=== PATIENT | male | born 1965 | race Caucasian/White ===

== ENCOUNTER 2017-09-02 11:45 | Inpatient (IN) ==
--- NOTE | 2017-09-02 12:04 | Emergency Department Note ---
Disposition Clinical Impression: GI bleed Qualifiers: GI bleed type/associated pathology: unspecified gastrointestinal hemorrhage type Qualified Code(s): K92.2 - Gastrointestinal hemorrhage, unspecified Disposition: Admitted As Inpatient Condition: Good Referrals: Blu Álvarez MD [Primary Care Provider] - Forms: ED Satisfaction Letter Time of Disposition: 12:44 GI Bleed HPI - General Chief complaint: ED GI Bleed Stated complaint: Weakness/Tarry stools Time Seen by Provider: 09/02/17 11:50 Source: patient Limitations: no limitations Nursing Notes Reviewed: Yes Vital Signs Reviewed: Yes - History of Present Illness HPI Narrative: 51-year-old who comes in stating he has dark tarry stools. Patient is on Coumadin for atrial fibrillation. Patient has had to receive blood in the past. I did review old records he had endoscopy that was negative he had a colonoscopy with several polyps were removed. This was in 2016. He states he feels generally weak is not dizzy. Pt Subjective Complaint: other Onset (ago): day(s) (Dark tarry stools) Consistency: constant Severity: moderate Improves with: nothing Worsens with: nothing Context: history of GI bleed, anticoagulant use Associated symptoms: Reports: none Treatments Prior to Arrival: none - Related Data Home Medications Medication Instructions Recorded Confirmed Warfarin [Coumadin] 7.5 tab PO DAILY 11/18/14 09/02/17 Atorvastatin [Lipitor] 80 mg PO HS 12/10/14 09/02/17 Docusate [Colace] 100 mg PO DAILY 12/10/14 09/02/17 Lisinopril [Zestril] 2.5 mg PO DAILY 12/10/14 09/02/17 Metoprolol [Lopressor] 25 mg PO BID 12/10/14 09/02/17 Omeprazole [PriLOSEC] 40 mg PO DAILY 12/10/14 09/02/17 OxyCODONE/APAP 10/325 [Percocet 1 tab PO TID PRN 12/10/14 09/02/17 10/325 MG] Isosorbide MONOnitrate (24 HR) 30 mg PO DAILY 12/08/15 09/02/17 [Imdur] Ranolazine [Ranexa] 500 mg PO BID 12/08/15 09/02/17 Iron Aspgly,Ps/C/Succinic Acid 1 cap PO BID 11/25/16 05/19/18 [Ferrex 150 Plus Capsule] Nitroglycerin [Nitrostat] 0.4 mg SL AD PRN 03/11/16 09/02/17 Prasugrel [Effient] 10 mg PO DAILY 03/11/16 09/02/17 Allergies Allergy/AdvReac Type Severity Reaction Status Date / Time No Known Allergies Allergy Verified 09/02/17 10:48 Constitutional: Denies: fever, chills, weakness, weight change Eyes: Denies: eye pain, eye discharge, vision change ENT ED: Denies: ear pain, throat pain, dental pain, hearing loss, epistaxis, congestion, dysphagia Cardiovascular: Denies: chest pain, palpitations, dyspnea on exertion, edema, syncope Respiratory: Denies: cough, dyspnea, wheezes, hemoptysis, stridor Gastrointestinal: Reports: other (Dark tarry stools). Denies: abdominal pain, nausea, vomiting, diarrhea, constipation, hematemesis, melena, hematochezia Genitourinary: Denies: urgency, dysuria, frequency, hematuria Musculoskeletal: Denies: back pain, neck pain, arthralgia, myalgia Integumentary: Denies: rash, abrasion, lesions Neurological: Denies: headache, weakness, numbness, paresthesias, confusion, abnormal gait, vertigo Psychiatric: Denies: anxiety, depression, suicidal thoughts, homicidal thoughts , auditory hallucinations, visual hallucinations Endocrine: Denies: fatigue Hematological/Lymphatic: Denies: easy bleeding, easy bruising Allergic/Immunologic: Denies: facial swelling, urticaria Past Medical History - Past Medical History Medical history: Reports: coronary artery disease, DVT, GERD, hyperlipidemia, hypertension, myocardial infarction, other Surgical history: Reports: coronary bypass (CABG), herniorrhaphy Psychiatric history: Reports: no psych history - Social History Smoking Status: Current every day smoker Smokeless Tobacco Status: No Alcohol use: Reports: rarely Drug use: Reports: none Physical Exam - General Limitations: no limitations General appearance: alert, in no apparent distress - Head Head exam: atraumatic, normocephalic, normal inspection - Eye Eye exam: Present: normal appearance, PERRL, EOMI - ENT ENT exam: normal exam, normal oropharynx, mucous membranes moist - Neck Neck exam: Present: normal inspection, full ROM, trachea midline - Chest Chest inspection: Present: normal inspection, symmetric chest wall rise - Respiratory Respiratory exam: Present: normal lung sounds bilaterally - Cardiovascular Cardiovascular exam: Present: regular rate, normal rhythm, normal heart sounds - Abdominal Exam Abdominal exam: Present: soft, Non-Tender. Absent: tenderness, distention, guarding, rebound, rigidity - Rectal Exam [employer] present during exam: Yes Rectal exam: Present: heme (+) stool, black stool - Extremities Exam Extremities exam: Present: normal inspection, full ROM. Absent: tenderness, pedal edema - Expanded Lower Extremity Exam Neurovascular/Tendon exam: Absent: motor deficit, sensory deficit, tendon deficit Gait: observed and normal - Back Exam Back exam: Present: normal inspection, full ROM. Absent: tenderness - Neurological Exam Neurological exam: Present: alert, oriented X3 - Psychiatric Psychiatric exam: Present: normal affect, normal mood - Skin Skin exam: Present: warm Course - Reevaluation(s) Reevaluation #1: 51-year-old who is on blood thinners for previous blood clot comes in with dark tarry stools. Hemoglobin is 12. Consultation obtained with endoscopy and will the patient will be admitted to the hospitalist. Vital signs are stable at this time. Time: 14:00 - Consultations Consultation #1: Discussed with , will see in consultation. Time: 12:43 Consultation #2: Discussed with Dr. Stephens, admit. Time: 13:59 Vital Signs Temperature 98.1 F 09/02/17 11:45 Pulse Rate 68 09/02/17 11:45 Respiratory Rate 18 09/02/17 11:45 Blood Pressure 132/52 09/02/17 11:45 O2 Sat by Pulse Oximetry 98 09/02/17 11:45 Temperature 98.1 F 09/02/17 11:53 Pulse Rate 64 09/02/17 13:46 Respiratory Rate 18 09/02/17 13:46 Blood Pressure 130/75 09/02/17 13:46 O2 Sat by Pulse Oximetry 96 09/02/17 13:46 Oxygen Delivery Oxygen Delivery Room Air GI Bleed - Lab Data Result diagrams: 09/02/17 11:51 09/02/17 11:51 Lab Results 09/02/17 09/02/17 09/02/17 Range/Units 11:51 11:51 11:51 WBC 9.3 (4.3-11.1) K/mcL RBC 4.63 (4.19-5.50) M/mcL Hgb 12.0 L (12.9-16.9) g/dL Hct 38.3 (37.5-50.1) % MCV 82.7 L (83.0-100.0) fL MCH 25.9 L (28.0-33.3) pg MCHC 31.3 L (31.6-35.5) g/dL RDW 16.9 H (11.5-14.5) % Plt Count 213 (140-400) K/mcL MPV 11.4 (9.4-12.4) fL Immature Gran % 1.0 (0-4) % Seg Neutrophils % 54.5 % Lymphocytes % 33.2 % Monocytes % 8.3 % Eosinophils % 2.5 % Basophils % 0.5 % Neutrophils # 5.0 (1.6-8.9) K/mcL Lymphocytes # 3.1 (0.6-4.6) K/mcL Monocytes # 0.8 (0.0-1.3) K/mcL Eosinophils # 0.2 (0.0-0.6) K/mcL Basophils # 0.1 (0.0-0.2) K/mcL PT 36.6 H (9.4-12.1) Seconds INR 3.3 APTT 46.3 H (26.0-36.0) Seconds Sodium 134 L (136-145) mEq/L Potassium 3.6 (3.5-5.1) mEq/L Chloride 103 (98-107) mEq/L Carbon Dioxide 26 (23-29) mEq/L BUN 11 (6-20) mg/dL Creatinine 1.17 (0.70-1.30) mg/dL Est GFR ( Amer) > 60 (> 60) Est GFR (Non-Af Amer) > 60 (> 60) BUN/Creatinine Ratio 9 (6-26) Glucose 148 H (70-105) mg/dL Calculated Osmolality 280 (280-300) Calcium 9.1 (8.6-10.3) mg/dL Troponin I < 0.03 (< 0.04) ng/mL Blood Type Antibody Screen 09/02/17 Range/Units 12:06 WBC (4.3-11.1) K/mcL RBC (4.19-5.50) M/mcL Hgb (12.9-16.9) g/dL Hct (37.5-50.1) % MCV (83.0-100.0) fL MCH (28.0-33.3) pg MCHC (31.6-35.5) g/dL RDW (11.5-14.5) % Plt Count (140-400) K/mcL MPV (9.4-12.4) fL Immature Gran % (0-4) % Seg Neutrophils % % Lymphocytes % % Monocytes % % Eosinophils % % Basophils % % Neutrophils # (1.6-8.9) K/mcL Lymphocytes # (0.6-4.6) K/mcL Monocytes # (0.0-1.3) K/mcL Eosinophils # (0.0-0.6) K/mcL Basophils # (0.0-0.2) K/mcL PT (9.4-12.1) Seconds INR APTT (26.0-36.0) Seconds Sodium (136-145) mEq/L Potassium (3.5-5.1) mEq/L Chloride (98-107) mEq/L Carbon Dioxide (23-29) mEq/L BUN (6-20) mg/dL Creatinine (0.70-1.30) mg/dL Est GFR ( Amer) (> 60) Est GFR (Non-Af Amer) (> 60) BUN/Creatinine Ratio (6-26) Glucose (70-105) mg/dL Calculated Osmolality (280-300) Calcium (8.6-10.3) mg/dL Troponin I (< 0.04) ng/mL Blood Type O POSITIVE Antibody Screen NEGATIVE - EKG Data EKG attestation: Yes I reviewed and interpreted this EKG. EKG shows normal: sinus rhythm Rate: normal Rhythm: NSR Phil Campbell/QRS: normal Q waves: III When compared to previous EKG there are: no significant changes (12/26/2016) Interpretation: no acute changes
[2017-09-02 12:23] LABS: Basophils # 0.1 K/mcL (0.0-0.2); Basophils % 0.5 %; Eosinophils # 0.2 K/mcL (0.0-0.6); Eosinophils % 2.5 %; Hematocrit 38.3 % (37.5-50.1); Lymphocytes # 3.1 K/mcL (0.6-4.6); Lymphocytes % 33.2 %; Mean Corpuscular HGB Conc 31.3 g/dL (31.6-35.5); Mean Corpuscular Hemoglobin 25.9 pg (28.0-33.3); Mean Corpuscular Volume 82.7 fL (83.0-100.0); Mean Platelet Volume 11.4 fL (9.4-12.4); Monocytes # 0.8 K/mcL (0.0-1.3); Monocytes % 8.3 %; Platelet Count 213 K/mcL (140-400); Red Blood Count 4.63 M/mcL (4.19-5.50); Red Cell Distribution Width 16.9 % (11.5-14.5); Segmented Neutrophils % 54.5 %
[2017-09-02 12:28] LABS: INR 3.3; Prothrombin Time 36.6 Seconds (9.4-12.1)
[2017-09-02 12:30] LABS: Activated Partial Thrombo Time 46.3 Seconds (26.0-36.0)
[2017-09-02 12:45] LABS: BUN/Creatinine Ratio 9 (6-26); Blood Urea Nitrogen 11 mg/dL (6-20); Calcium 9.1 mg/dL (8.6-10.3); Carbon Dioxide 26 mEq/L (23-29); Chloride 103 mEq/L (98-107); Glucose 148 mg/dL (70-105); Osmolality,Calculated 280 (280-300); Potassium 3.6 mEq/L (3.5-5.1); Sodium 134 mEq/L (136-145); Troponin I < 0.03 ng/mL (< 0.04); eGFR For African Americans > 60 (> 60); eGFR For Non-African Americans > 60 (> 60)
[2017-09-02] MEDS ORDERED: Naloxone 0.4 MG/ML INJ IVP PRN (14:18)
--- NOTE | 2017-09-02 14:21 | Internal Med History&Physical ---
Date of Encounter: 09/02/17 Time of Encounter: 14:18 Internal Medicine - H&P: HPI Chief complaint: GI bleed Admitted From: Home Plans for Post Hospital Care: Home History of present illness: Mr. Mendez is a 51 year old male with history of CAD status post CABG in 2014, hypertension, DVT on Coumadin since 2000, prediabetic came to ER with concern of dark tarry stools is started yesterday 2 episodes therefore got concerned and decided to come ER. Patient had history of GI bleed in 2015 with upper GI endoscopic normal finding but colonoscopy with polyp but since then he did not follow GI specialist. He also complained intermittent mild left upper quadrant pain but none at present. In ER hemoglobin stable, slight raise INR 3.3, Hemoccult stool positive. Patient denies fever, chills, nausea, vomiting, headache, dizziness, chest pain , shortness of breath, urinary complaint. He feel generalized weakness and fatigue with intermittent left upper quadrant pain but better now Past Med Surg Social Fam HX - Past Medical History Medical history: coronary artery disease, DVT, GERD, hyperlipidemia, hypertension, myocardial infarction, other Psychiatric history: no psych history - Past Surgical History Surgical History: coronary bypass (CABG), herniorrhaphy - Social History Smoking Status: Current every day smoker Smokeless Tobacco Status: No Alcohol use: rarely Drug use: none Internal Medicine - H&P: Meds Atorvastatin [Lipitor] 80 mg PO HS 12/10/14 [History] Metoprolol [Lopressor] 25 mg PO BID 12/10/14 [History] OxyCODONE/APAP 10/325 [Percocet 10/325 MG] 1 tab PO TID PRN 12/10/14 [History] Isosorbide MONOnitrate (24 HR) [Imdur] 30 mg PO DAILY 12/08/15 [History] Ranolazine [Ranexa] 500 mg PO BID 12/08/15 [History] Iron Aspgly,Ps/C/Succinic Acid [Ferrex 150 Plus Capsule] 1 cap PO BID 03/11/16 [ History] Nitroglycerin [Nitrostat] 0.4 mg SL AD PRN 03/11/16 [History] Prasugrel [Effient] 10 mg PO DAILY 03/11/16 [History] Docusate [Colace] 100 mg PO DAILY 09/02/17 [History] Lisinopril [Zestril] 2.5 mg PO DAILY 09/02/17 [History] Omeprazole [PriLOSEC] 40 mg PO DAILY 09/02/17 [History] Warfarin [Coumadin] 7.5 mg PO MO 09/02/17 [History] Warfarin [Coumadin] 11.25 mg PO SUTUWETHFRSA 09/02/17 [History] 3 Allergy/AdvReac Type Severity Reaction Status Date / Time No Known Allergies Allergy Verified 09/02/17 10:48 All Systems PM: as documented above in the HPI. - Constitutional Vitals: Temp Pulse Resp BP Pulse Ox 98.1 F 64 18 130/75 96 09/02/17 11:53 09/02/17 13:46 09/02/17 13:46 09/02/17 13:46 09/02/17 13:46 Exam: General appearance: No acute distress, A&O X 3, obese Head exam: Atraumatic Eye exam: EOMI, PERRLA ENT exam: Moist oral mucosa Neck nontender, supple Respiratory exam: Clear to auscultation bilaterally Cardiovascular exam: Regular rate and rhythm, no systolic murmur Abdominal exam: Soft, nontender, nondistended, positive bowel sounds Extremities exam: No calf tenderness, no pedal edema Present: Skin-no rash, warm, dry, intact Neurological exam: Alert, awake, oriented 3, CN II-XII intact, no focal deficits. No facial droop. Normal speech. Normal gait. Internal Med - H&P Results - Labs CBC & Chem 7: 09/02/17 11:51 09/02/17 11:51 - Assessment and plan (1) GI bleeding Current Visit: Yes Status: Acute Assessment and plan: Melena, Hemoccult-positive. No visible active bleeding at this time. stable hemoglobin. Slight high INR. Hold anticoagulation medicine. Hemoglobin serial every 6 hours, Protonix IV twice a day, SCDs. ER physician already consulted on-call surgeon Dr. Ballard. Patient has intermittent left upper quadrant pain therefore lipase ordered. No acute abdomen and no tenderness at this time. Abdomen ultrasound ordered Qualifiers: GI bleed type/associated pathology: melena Qualified Code(s): K92.1 - Melena (2) CAD (coronary artery disease) Current Visit: Yes Status: Chronic Assessment and plan: Status post CABG. Stable. No active chest pain. Troponin negative. Continue home medicine except blood thinner Qualifiers: Coronary Disease-Associated Artery/Lesion type: [place] artery [place] vs. transplanted heart: [place] heart Associated angina: without angina Qualified Code(s): I25.10 - Atherosclerotic heart disease of [place] coronary artery without angina pectoris (3) DVT (deep venous thrombosis) Current Visit: Yes Status: Chronic Assessment and plan: History of DVT bilateral lower extremity therefore takes Coumadin. Slight high INR. GI bleed concerned therefore Coumadin on hold. Will follow further instruction as per GI. SCDs Qualifiers: DVT location: lower extremity Affected thrombotic vein of extremity: unspecified vein of extremity Chronicity: chronic Laterality: bilateral Qualified Code(s): I82.503 - Chronic embolism and thrombosis of unspecified deep veins of lower extremity, bilateral (4) Hypertension Current Visit: Yes Status: Acute Assessment and plan: Stable. Continue home medicine Qualifiers: Hypertension type: essential hypertension Qualified Code(s): I10 - Essential (primary) hypertension - Time Spent With Patient Total time spent is greater than 50% in coordination of care (as documented) at patient's floor/unit and/or counseling patient: 25 - 35 minutes
[2017-09-02] MEDS ORDERED: Nitroglycerin 0.4 MG TAB.SUBL SL PRN (14:22)
[2017-09-02 15:28] LABS: Hematocrit 37.5 % (37.5-50.1)
[2017-09-02] MEDS: 0.9 % Sodium Chloride 1,000 ML IVC SCH (16:06)
--- NOTE | 2017-09-02 17:25 | General Surgery Consult Note ---
<GiovanniKaleb abel - Last Filed: 09/02/17 17:37> Date of Encounter: 09/02/17 Time of Encounter: 15:30 Assessment and Plan (1) GI bleed Current Visit: Yes Status: Acute Patient requires and EGD and colonscopy for GI bleed, however given that he takes coumadin and currently has an INR of 3.3, performing and EGD with an elevated INR would not be possible. - Continue clear liquid diet. - Will proceed with bowel prep for plans for colonoscopy once INR drops to a safe range. Qualifiers: GI bleed type/associated pathology: unspecified gastrointestinal hemorrhage type Qualified Code(s): K92.2 - Gastrointestinal hemorrhage, unspecified (2) History of DVT (deep vein thrombosis) Current Visit: Yes Status: Acute Patient takes coumadin at home. Current INR of 3.3. History of Present Illness Consult date: 09/02/17 Requesting physician: Fabiano Roman History of present illness: Mr. Mendez is a 51 year old male with history of CAD status post CABG in 2014, hypertension, DVT b/l on Coumadin since 2000, prediabetic came to ER with concern of dark tarry stools is started 2 days ago. Patient had history of GI bleed in 2016 with upper GI endoscopic normal finding but colonoscopy with polyp but since then he did not follow GI specialist. He complains of having dark tarry stool for the past 2 days that was preceeded by 3 days of constipation. He complains of having intermittent diffuse abdominal pain that is most prominent in the LUQ. He says movement seems to make the pain worse. He denies any post-prandial pain. Denies fever or chills. He denies any nausea, vomiting, chest pain, or shortness of breath. He admits to having weakness and light-headedness starting today. He states he had two dark tarry stools today prior to presenting to the ER. His abdominal pain right now of now is minimal. Past Med Surg Social Fam HX - Past Medical History Medical history: coronary artery disease, DVT, GERD, hyperlipidemia, hypertension, myocardial infarction, other Psychiatric history: no psych history - Past Surgical History Surgical History: coronary bypass (CABG), herniorrhaphy - Social History Smoking Status: Current every day smoker Packs per day: 1 Smokeless Tobacco Status: No Alcohol use: rarely Drug use: none Medications and Allergies Atorvastatin [Lipitor] 80 mg PO HS 12/10/14 [History] Metoprolol [Lopressor] 25 mg PO BID 12/10/14 [History] OxyCODONE/APAP 10/325 [Percocet 10/325 MG] 1 tab PO TID PRN 12/10/14 [History] Isosorbide MONOnitrate (24 HR) [Imdur] 30 mg PO DAILY 12/08/15 [History] Ranolazine [Ranexa] 500 mg PO BID 12/08/15 [History] Iron Aspgly,Ps/C/Succinic Acid [Ferrex 150 Plus Capsule] 1 cap PO BID 03/11/16 [ History] Nitroglycerin [Nitrostat] 0.4 mg SL AD PRN 03/11/16 [History] Prasugrel [Effient] 10 mg PO DAILY 03/11/16 [History] Docusate [Colace] 100 mg PO DAILY 09/02/17 [History] Lisinopril [Zestril] 2.5 mg PO DAILY 09/02/17 [History] Omeprazole [PriLOSEC] 40 mg PO DAILY 09/02/17 [History] Warfarin [Coumadin] 7.5 mg PO MO 09/02/17 [History] Warfarin [Coumadin] 11.25 mg PO SUTUWETHFRSA 09/02/17 [History] 3 Allergy/AdvReac Type Severity Reaction Status Date / Time No Known Allergies Allergy Verified 09/02/17 10:48 Review of Systems All systems PM: The remainder of the systems were reviewed and are negative - Constitutional weakness, no fever(s) - Cardiovascular no chest pain, no dyspnea - Gastrointestinal abdominal pain, constipation, hematochezia, melena, no diarrhea, no nausea, no vomiting - Neurological dizziness, weakness General Surgery Exam Initial Vital Signs Temp Pulse Resp BP Pulse Ox 98.1 F 68 18 132/52 98 09/02/17 11:45 09/02/17 11:45 09/02/17 11:45 09/02/17 11:45 09/02/17 11:45 - General physical appearance well developed, well nourished, no distress - Neck no masses, no bruits, trachea midline, no lymphadectomy, no venous distension - Respiratory normal expansion, normal respiratory effort, clear to percussion, clear to auscultation - Cardiovascular Cardiovascular exam: Present: RRR, 15, 16 - Abdomen Abdomen general surgery: Present: bowel sounds present, soft, non tender - Integumentary Integumentary general surgery: Present: warm and dry, no abnormal pigmentation - Musculoskeletal Present: normal gait, normal posture - Psychiatric Psychiatric general surgery: Present: A&Ox3, appropriate, oriented to person, oriented to place, oriented to time, speech is normal, memory intact Exam Initial Vital Signs Temp Pulse Resp BP Pulse Ox 98.1 F 68 18 132/52 98 09/02/17 11:45 09/02/17 11:45 09/02/17 11:45 09/02/17 11:45 09/02/17 11:45 Results - Labs 09/02/17 15:06 09/02/17 11:51 Abnormal lab results Hgb 12.0 g/dL (12.9-16.9) L 09/02/17 15:06 MCV 82.7 fL (83.0-100.0) L 09/02/17 11:51 MCH 25.9 pg (28.0-33.3) L 09/02/17 11:51 MCHC 31.3 g/dL (31.6-35.5) L 09/02/17 11:51 RDW 16.9 % (11.5-14.5) H 09/02/17 11:51 PT 36.6 Seconds (9.4-12.1) H 09/02/17 11:51 APTT 46.3 Seconds (26.0-36.0) H 09/02/17 11:51 Sodium 134 mEq/L (136-145) L 09/02/17 11:51 Glucose 148 mg/dL (70-105) H 09/02/17 11:51 All other labs normal. Consult Discharge Plan - Plan Referrals: Blu Álvarez MD [Primary Care Provider] - <Eugenia Hurst - Last Filed: 09/03/17 15:47> Date of Encounter: 09/03/17 Time of Encounter: 11:45 Assessment and Plan (1) Melena Current Visit: Yes Status: Acute patients hemoglobin stable last 24 hrs, inr increased discussed with patient staying in hospital until INR decreased versus letting him go home and have my office schedule outpatient egd/colonoscopy for mondaySeptember 12, he would prefer to do as outpatient he will stay off coumadin until procedures will check Hb/inr this monday as outpatient (2) Anticoagulation adequate Current Visit: Yes Status: Acute hold coumadin until outpatient scopes last dvt 2000 History of Present Illness History of present illness: Two day history melanotic stools. Initially had generalized abdominal pain and diarrhea that started at the same time. No abdominal pain currently. No nausea or emesis. No hematochezia. He does have gerd symptoms which are primarily controlled with his PPI therapy. No recent weight loss. NO [facility] colorectal cancer patient is on coumadin with a history of multiple dvts both legs, last dvt 2000. No history of PE Past Med Surg Social Fam HX - Past Medical History Source: patient Review of Systems All systems PM: reviewed and no additional remarkable complaints except as stated All systems PM: The remainder of the systems were reviewed and are negative General Surgery Exam Initial Vital Signs Temp Pulse Resp BP Pulse Ox 98.1 F 68 18 132/52 98 09/02/17 11:45 09/02/17 11:45 09/02/17 11:45 09/02/17 11:45 09/02/17 11:45 - General physical appearance well developed, well nourished, no distress - Eyes PERRL, normal ocular movement - ENT normal mucosa, normocephalic - Neck trachea midline - Respiratory normal expansion, clear to auscultation - Cardiovascular Cardiovascular exam: Present: RRR - Abdomen Abdomen general surgery: Present: bowel sounds present, soft, non tender. Absent: distended - Integumentary Integumentary general surgery: Present: warm and dry, no abnormal pigmentation - Neurologic Present: CN 2-12 grossly intact - Musculoskeletal Present: normal posture - Psychiatric Psychiatric general surgery: Present: A&Ox3, speech is normal Exam Initial Vital Signs Temp Pulse Resp BP Pulse Ox 98.1 F 68 18 132/52 98 09/02/17 11:45 09/02/17 11:45 09/02/17 11:45 09/02/17 11:45 09/02/17 11:45 Results - Labs 09/03/17 03:16 09/03/17 03:16 Short CBC 09/03/17 09/02/17 Range/Units 03:16 20:16 WBC 7.0 (4.3-11.1) K/mcL Hgb 10.7 L 10.8 L (12.9-16.9) g/dL Hct 33.2 L 33.2 L (37.5-50.1) % Plt Count 176 (140-400) K/mcL Neutrophils # 3.4 (1.6-8.9) K/mcL BMP 09/03/17 Range/Units 03:16 Sodium 137 (136-145) mEq/L Potassium 4.1 (3.5-5.1) mEq/L Chloride 106 (98-107) mEq/L Carbon Dioxide 26 (23-29) mEq/L BUN 9 (6-20) mg/dL Creatinine 1.02 (0.70-1.30) mg/dL Glucose 102 (70-105) mg/dL Calcium 8.5 L (8.6-10.3) mg/dL Liver Function 09/03/17 Range/Units 03:16 Total Bilirubin 0.4 (0.3-1.0) mg/dL AST 20 (13-39) Units/L ALT 25 (7-52) Units/L Alkaline Phosphatase 69 (34-104) Units/L Albumin 3.8 (3.5-5.7) g/dL Vital Signs Temp Pulse Resp BP Pulse Ox 09/03/17 10:48 98.2 F 76 16 145/61 93 09/03/17 07:28 98.2 F 56 16 117/69 96 09/03/17 04:11 97.7 F 59 14 117/63 94 09/02/17 23:25 97.9 F 58 14 119/62 95 09/02/17 20:24 98.0 F 62 14 144/79 95 Intake and Output 09/02/17 09/03/17 09/03/17 23:59 07:59 15:59 Intake Total 540 / 540 1200 / 1200 480 / 480 Output Total 1000 / 1000 925 / 925 650 / 650 Balance -460 / -460 275 / 275 -170 / -170 Intake: IV Fluids 1000 / 1000 0.9 % Sodium Chloride 1,000 ML 1000 / 1000 @ 75 mls/hr IVC .[id number] [facility] Rx #:[id number] Oral 540 / 540 200 / 200 480 / 480 Output: Urine 1000 / 1000 925 / 925 650 / 650 Other: Weight 106.141 kg 106.89 kg Patient Weight 09/03/17 23:59 Weight 106.89 kg
[2017-09-02] MEDS: Pantoprazole 40 MG VIAL IVP SCH (18:05)
[2017-09-02 20:31] LABS: Hematocrit 33.2 % (37.5-50.1); Hemoglobin 10.8 g/dL (12.9-16.9)
[2017-09-02] MEDS: Ranolazine 500 MG TAB.ER.12H PO SCH (20:43)
[2017-09-02] MEDS: *HR* OxyCODONE/APAP 7.5/325 TABLET PO PRN (22:10)
[2017-09-03 03:36] LABS: Basophils % 0.6 %; Eosinophils # 0.2 K/mcL (0.0-0.6); Eosinophils % 2.7 %; Hematocrit 33.2 % (37.5-50.1); Hemoglobin 10.7 g/dL (12.9-16.9); Lymphocytes # 2.7 K/mcL (0.6-4.6); Lymphocytes % 38.9 %; Mean Corpuscular HGB Conc 32.2 g/dL (31.6-35.5); Mean Corpuscular Hemoglobin 26.8 pg (28.0-33.3); Mean Corpuscular Volume 83.2 fL (83.0-100.0); Mean Platelet Volume 11.1 fL (9.4-12.4); Monocytes # 0.6 K/mcL (0.0-1.3); Monocytes % 8.9 %; Neutrophils # 3.4 K/mcL (1.6-8.9); Platelet Count 176 K/mcL (140-400); Red Blood Count 3.99 M/mcL (4.19-5.50); Red Cell Distribution Width 16.8 % (11.5-14.5); Segmented Neutrophils % 47.9 %
[2017-09-03 03:42] LABS: INR 3.7; Prothrombin Time 41.2 Seconds (9.4-12.1)
[2017-09-03 04:01] LABS: Alanine Aminotransferase 25 Units/L (7-52); Albumin 3.8 g/dL (3.5-5.7); Albumin/Globulin Ratio 1.9 (1.1-2.2); Alkaline Phosphatase 69 Units/L (34-104); Aspartate Amino Transferase 20 Units/L (13-39); BUN/Creatinine Ratio 9 (6-26); Bilirubin,Total 0.4 mg/dL (0.3-1.0); Blood Urea Nitrogen 9 mg/dL (6-20); Calcium 8.5 mg/dL (8.6-10.3); Carbon Dioxide 26 mEq/L (23-29); Chloride 106 mEq/L (98-107); Glucose 102 mg/dL (70-105); Osmolality,Calculated 283 (280-300); Potassium 4.1 mEq/L (3.5-5.1); Sodium 137 mEq/L (136-145); Total Protein 5.8 g/dL (6.4-8.9); eGFR For African Americans > 60 (> 60); eGFR For Non-African Americans > 60 (> 60)
[2017-09-03] MEDS: Pantoprazole 40 MG VIAL IVP SCH ×2 (05:31→17:29)
[2017-09-03] MEDS: 0.9 % Sodium Chloride 1,000 ML IVC SCH (05:36)
[2017-09-03] MEDS: Isosorbide MONOnitrate (24 HR) 30 MG TAB.ER.24H PO SCH (08:28)
[2017-09-03] MEDS: Ranolazine 500 MG TAB.ER.12H PO SCH ×2 (08:28→22:31)
[2017-09-03] MEDS: *HR* OxyCODONE/APAP 7.5/325 TABLET PO PRN ×2 (08:31→17:31)
--- NOTE | 2017-09-03 12:01 | Internal Med Progress Note ---
Date of Encounter: 09/03/17 Time of Encounter: 11:50 - Assessment and plan (1) GI bleeding Current Visit: Yes Status: Acute Assessment and plan: Plan: - Continue Protonix BID - Plan for endoscopy when INR<2 Qualifiers: GI bleed type/associated pathology: melena Qualified Code(s): K92.1 - Melena (2) CAD (coronary artery disease) Current Visit: Yes Status: Chronic Assessment and plan: Status post CABG. Stable. No active chest pain. Troponin negative. Continue home medicine except blood thinner Qualifiers: Coronary Disease-Associated Artery/Lesion type: [place] artery [place] vs. 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 Slight high INR. Typically per guidelines considering this was a unprovoked event, he would be on lifelong anticoagulation. However, since he had GI bleed in the past and if this is his second event, we should reconsider antibiotic for his DVTs. Plan - Repeat vascular Dopplers of the legs - Hypercoagulability workup Qualifiers: DVT location: lower extremity Affected thrombotic vein of extremity: unspecified vein of extremity Chronicity: chronic Laterality: bilateral Qualified Code(s): I82.503 - Chronic embolism and thrombosis of unspecified deep veins of lower extremity, bilateral (4) Hypertension Current Visit: Yes Status: Acute Assessment and plan: Stable. Continue home medicine Qualifiers: Hypertension type: essential hypertension Qualified Code(s): I10 - Essential (primary) hypertension - Time Spent With Patient Total time spent is greater than 50% in coordination of care (as documented) at patient's floor/unit and/or counseling patient: 25 - 35 minutes - Constitutional Vitals: Temp Pulse Resp BP Pulse Ox 98.2 F 76 16 145/61 93 09/03/17 10:48 09/03/17 10:48 09/03/17 10:48 09/03/17 10:48 09/03/17 10:48 Internal Medicine: Result - Labs CBC & Chem 7: 09/03/17 03:16 09/03/17 03:16 Labs: Short CBC 09/02/17 09/02/1718 Range/Units 15:06 15:06 20:16 WBC (4.3-11.1) K/mcL RBC (4.19-5.50) M/mcL Hgb 12.0 L 10.8 L (12.9-16.9) g/dL Hct 37.5 33.2 L (37.5-50.1) % MCV (83.0-100.0) fL MCH (28.0-33.3) pg MCHC (31.6-35.5) g/dL RDW (11.5-14.5) % Plt Count (140-400) K/mcL MPV (9.4-12.4) fL Immature Gran % (0-4) % Seg Neutrophils % % Lymphocytes % % Monocytes % % Eosinophils % % Basophils % % Neutrophils # (1.6-8.9) K/mcL Lymphocytes # (0.6-4.6) K/mcL Monocytes # (0.0-1.3) K/mcL Eosinophils # (0.0-0.6) K/mcL Basophils # (0.0-0.2) K/mcL PT (9.4-12.1) Seconds INR Sodium (136-145) mEq/L Potassium (3.5-5.1) mEq/L Chloride (98-107) mEq/L Carbon Dioxide (23-29) mEq/L BUN (6-20) mg/dL Creatinine (0.70-1.30) mg/dL Est GFR ( Amer) (> 60) Est GFR (Non-Af Amer) (> 60) BUN/Creatinine Ratio (6-26) Glucose (70-105) mg/dL Calculated Osmolality (280-300) Calcium (8.6-10.3) mg/dL Total Bilirubin (0.3-1.0) mg/dL AST (13-39) Units/L ALT (7-52) Units/L Alkaline Phosphatase (34-104) Units/L Serum Total Protein (6.4-8.9) g/dL Albumin (3.5-5.7) g/dL Globulin (2.4-3.5) g/dL Albumin/Globulin Ratio (1.1-2.2) Lipase 57 (11-82) Units/L 09/03/17 09/03/1709/03/18 Range/Units 03:16 03:16 03:16 WBC 7.0 (4.3-11.1) K/mcL RBC 3.99 L (4.19-5.50) M/mcL Hgb 10.7 L (12.9-16.9) g/dL Hct 33.2 L (37.5-50.1) % MCV 83.2 (83.0-100.0) fL MCH 26.8 L (28.0-33.3) pg MCHC 32.2 (31.6-35.5) g/dL RDW 16.8 H (11.5-14.5) % Plt Count 176 (140-400) K/mcL MPV 11.1 (9.4-12.4) fL Immature Gran % 1.0 (0-4) % Seg Neutrophils % 47.9 % Lymphocytes % 38.9 % Monocytes % 8.9 % Eosinophils % 2.7 % Basophils % 0.6 % Neutrophils # 3.4 (1.6-8.9) K/mcL Lymphocytes # 2.7 (0.6-4.6) K/mcL Monocytes # 0.6 (0.0-1.3) K/mcL Eosinophils # 0.2 (0.0-0.6) K/mcL Basophils # 0.0 (0.0-0.2) K/mcL PT 41.2 H (9.4-12.1) Seconds INR 3.7 Sodium 137 (136-145) mEq/L Potassium 4.1 (3.5-5.1) mEq/L Chloride 106 (98-107) mEq/L Carbon Dioxide 26 (23-29) mEq/L BUN 9 (6-20) mg/dL Creatinine 1.02 (0.70-1.30) mg/dL Est GFR ( Amer) > 60 (> 60) Est GFR (Non-Af Amer) > 60 (> 60) BUN/Creatinine Ratio 9 (6-26) Glucose 102 (70-105) mg/dL Calculated Osmolality 283 (280-300) Calcium 8.5 L (8.6-10.3) mg/dL Total Bilirubin 0.4 (0.3-1.0) mg/dL AST 20 (13-39) Units/L ALT 25 (7-52) Units/L Alkaline Phosphatase 69 (34-104) Units/L Serum Total Protein 5.8 L (6.4-8.9) g/dL Albumin 3.8 (3.5-5.7) g/dL Globulin 2.0 L (2.4-3.5) g/dL Albumin/Globulin Ratio 1.9 (1.1-2.2) Lipase (11-82) Units/L BMP 09/03/17 03:16 Sodium 137 Potassium 4.1 Chloride 106 Carbon Dioxide 26 BUN 9 Creatinine 1.02 Glucose 102 Calcium 8.5 L Liver Function 09/03/17 Range/Units 03:16 Total Bilirubin 0.4 (0.3-1.0) mg/dL AST 20 (13-39) Units/L ALT 25 (7-52) Units/L Alkaline Phosphatase 69 (34-104) Units/L Albumin 3.8 (3.5-5.7) g/dL - ABG Interpretation ABG results: PT/INR, D-dimer PT 41.2 Seconds (9.4-12.1) H 09/03/17 03:16 Consult Discharge Plan - Plan Referrals: Blu Álvarez MD [Primary Care Provider] -
--- NOTE | 2017-09-03 16:19 | General Surgery Progress Note ---
<Kaleb Olivera - Last Filed: 09/03/17 16:25> Date of Encounter: 09/03/17 Time of Encounter: 08:40 - Assessment and Plan (1) GI bleed Current Visit: Yes Status: Acute Patient requires and EGD and colonscopy for GI bleed, however given that he takes coumadin and currently has an INR of 3.7 (yesterday at 3.3), performing and EGD with an elevated INR would not be recommended. Patient currently denies any BM since admission. His hgb has been stable at 10.7 (yesterday at 10.8) and his vitals have been stable as well. He denies any MURGUIA, light-headedness, dizziness, or weakness currently. - Patient scheduled for follow-up in clinic on 09/11/17. He will need to undergo testing for his Hgb and INR this Monday (09/08/17) and if his levels are appropriate, we can proceed to do an EGD and colonoscopy. Qualifiers: GI bleed type/associated pathology: unspecified gastrointestinal hemorrhage type Qualified Code(s): K92.2 - Gastrointestinal hemorrhage, unspecified (2) History of DVT (deep vein thrombosis) Current Visit: Yes Status: Acute Patient takes coumadin at home. Current INR of 3.7. Subjective Narrative: Patient denies any abdominal pain. Denies any nausea or vomiting. Denies any BM but admits to passing gas. He denies any fever or chills. Denies any chest pain or shortness of breath. Objective VITAL SIGNS: Reviewed. See [facility] GENERAL: no apparent distress. HEENT: [Normocephalic, PER, EOMi, oropharynx pink/moist, no JVD noted.] CV: b/l rad pulses 2+, RRR, no murmurs or gallops, no JVD RESPIRATORY: CTAB without wheezes, rales, or rhonchi ABD: soft, non-tender, no rebound/guarding/rigidity, no peritoneal signs. Normal bowel sounds present. EXTREMITY: grossly normal motor function, no pedal edema, peripheral pulses 2+ b /l NEUROLOGIC EXAM: AOx3, obeys commands, no speech deficits. PSYCHIATRIC: normal mood and affect SKIN: no gross lesions, rashes, or skin changes Vital Signs Temperature 98.1 F 09/02/17 11:45 Pulse Rate 68 09/02/17 11:45 Respiratory Rate 18 09/02/17 11:45 Blood Pressure 132/52 09/02/17 11:45 O2 Sat by Pulse Oximetry 98 09/02/17 11:45 Temperature 98.2 F 09/03/17 10:48 Pulse Rate 76 09/03/17 10:48 Respiratory Rate 16 09/03/17 10:48 Blood Pressure 145/61 09/03/17 10:48 O2 Sat by Pulse Oximetry 93 09/03/17 10:48 Oxygen Delivery Oxygen Delivery Room Air - Labs 09/03/17 03:16 09/03/17 03:16 - VTE Reasons for not Prescribing Prophylaxis: Not indicated-Anticoagulated or INR therapeutic Consult Discharge Plan - Plan Referrals: Blu Álvarez MD [Primary Care Provider] - <Eugenia Hurst - Last Filed: 09/03/17 16:36> Date of Encounter: 09/03/17 - Assessment and Plan (1) Melena Current Visit: Yes Status: Acute ok to dc patient, will stay off coumadin will check inr and cbc this monday will plan outpatient egd/colonoscopy on mondayseptember 12, my office will set up with patient (2) Anticoagulation adequate Current Visit: Yes Status: Acute hold coumadin Objective - Labs 09/03/17 03:16 09/03/17 03:16 - Attending Attestation I examined this patient and my medical decision-making was reviewed with the Resident Physician. I agree with the documented findings, disposition and treatment plan as described except to the extent set forth below.
[2017-09-04] MEDS: Pantoprazole 40 MG VIAL IVP SCH (06:10)
[2017-09-04 06:43] VITALS: BP 161/74
[2017-09-04] MEDS: Isosorbide MONOnitrate (24 HR) 30 MG TAB.ER.24H PO SCH (07:31)
[2017-09-04] MEDS: Ranolazine 500 MG TAB.ER.12H PO SCH (07:31)
[2017-09-04] MEDS ORDERED: *HR* Phytonadione 5 MG TABLET PO ONE (08:34)
--- NOTE | 2017-09-04 08:47 | Discharge Summary ---
- NOTES TO OUTPATIENT PROVIDER Notes to Outpatient Provider: Patient hospitalized here with melena. Evaluated by surgery. His symptoms subsided with bowel rest. His INR was elevated and as such surgery recommended outpatient colonoscopy. His blood counts have been stable here. He will be rescheduled for colonoscopy next week. He is advised to hold off on Coumadin until he gets colonoscopy done. Is feeling much better now. Date of Encounter: 09/04/17 Time of Encounter: 08:44 - Discharge Diagnosis (1) GI bleeding Priority: Primary Status: Acute Qualifiers: GI bleed type/associated pathology: melena Qualified Code(s): K92.1 - Melena (2) CAD (coronary artery disease) Priority: Secondary Status: Chronic Qualifiers: Coronary Disease-Associated Artery/Lesion type: [place] artery [place] vs. transplanted heart: [place] heart Associated angina: without angina Qualified Code(s): I25.10 - Atherosclerotic heart disease of [place] coronary artery without angina pectoris (3) DVT (deep venous thrombosis) Priority: Secondary Status: Chronic Qualifiers: DVT location: lower extremity Affected thrombotic vein of extremity: unspecified vein of extremity Chronicity: chronic Laterality: bilateral Qualified Code(s): I82.503 - Chronic embolism and thrombosis of unspecified deep veins of lower extremity, bilateral (4) Hypertension Priority: Secondary Status: Acute Qualifiers: Hypertension type: essential hypertension Qualified Code(s): I10 - Essential (primary) hypertension Hospital course: Mr. Mendez is a 51 year old male patient with history of CAD status post CABG, hypertension, DVT who was hospitalized here with melena. He was evaluated by surgery for possible endoscopy. His symptoms subsided with bowel rest. His INR is elevated and as such surgery recommended outpatient colonoscopy. His blood counts have been stable here. He will be rescheduled for colonoscopy next week. He is advised to hold off on Coumadin until he gets colonoscopy done. He is feeling much better now. Discharge discussed with: patient, [facility] consultant - Time Spent with Patient Total time spent providing and/or coordinating discharge services: Less than 30 minutes (20 min) - Discharge Medications Home Medications: Atorvastatin [Lipitor] 80 mg PO HS 12/10/14 [History] Metoprolol [Lopressor] 25 mg PO BID 12/10/14 [History] OxyCODONE/APAP 10/325 [Percocet 10/325 MG] 1 tab PO TID PRN 12/10/14 [History] Isosorbide MONOnitrate (24 HR) [Imdur] 30 mg PO DAILY 12/08/15 [History] Ranolazine [Ranexa] 500 mg PO BID 12/08/15 [History] Iron Aspgly,Ps/C/Succinic Acid [Ferrex 150 Plus Capsule] 1 cap PO BID 03/11/16 [ History] Nitroglycerin [Nitrostat] 0.4 mg SL AD PRN 03/11/16 [History] Prasugrel [Effient] 10 mg PO DAILY 03/11/16 [History] Docusate [Colace] 100 mg PO DAILY 09/02/17 [History] Lisinopril [Zestril] 2.5 mg PO DAILY 09/02/17 [History] Omeprazole [PriLOSEC] 40 mg PO DAILY 09/02/17 [History] Allergies/Adverse Reactions: 3 Allergy/AdvReac Type Severity Reaction Status Date / Time No Known Allergies Allergy Verified 09/02/17 10:48 Date of admission: 09/03/17 14:33 Primary care physician: Blu Álvarez MD Consults: 09/02/17 12:42 Consult to Surgery [CONS] Stat Consulting Provider: Surgery [facility] Reason for Consult: GI bleed Time Notified: 12:42 Call Completed: Yes Discharging clinician: Viky Chamberlain Anticipated date of discharge: 09/04/17 - Constitutional Vitals: Temp Pulse Resp BP Pulse Ox 97.5 F L 53 16 161/74 96 09/04/17 06:38 09/04/17 06:38 09/04/17 06:38 09/04/17 06:38 09/04/17 06:38 General appearance: Present: cooperative, A&O X 3, answers questions appropriately - Respiratory Respiratory exam: Present: CTAB. Absent: accessory muscle use, rales, rhonchi, wheezes - Cardiovascular Cardiovascular exam: Present: RRR, +S1, +S2. Absent: diastolic murmur, gallop, rubs, systolic murmur - GI/Abdominal GI/Abdominal exam: Present: normal bowel sounds, soft, no peritoneal signs. Absent: distended, tenderness - Extremities Exam Extremities exam: Present: warm, radial pulses palpable and symmetrical. Absent : calf tenderness, cyanotic, pedal edema - Patient Status Disposition: Home, Self-Care Condition: Good Functional capacity at discharge: independent ambulation Overall status at discharge: patient is progressing back to baseline - Discharge Instructions Follow Up With: Eugenia Hurst MD [Partnered Physician] - (For colonoscopy next tuesday 09/12 Patient is already on schedule for Colonoscopy registration will call 2 days prior to give patient appointment time. ) Blu Álvarez MD [Primary Care Provider] - 09/08/17 11:00 am (in 1-2 weeks) - Diet and Activity Activity: increase activity as tolerated Diet: advance to your usual diet, low salt diet - VTE Reasons for not Prescribing Prophylaxis: Not indicated-Anticoagulated or INR therapeutic
--- NOTE | 2017-09-04 14:45 | Electrocardiograph Report ---
[address] [place] [address] Test Date: 2017-09-02 Pat Name: Jorge Mendez Department: 103 Room: 3A51 Gender: M Career Developer: VELASQUEZ : 1965 Requested By: Fabiano Roman Order Number: [id number] Reading MD: Lou Larsen Measurements Intervals [place] Rate: 62 P: 24 SD: 158 QRS: 10 QRSD: 92 T: 55 QT: 383 QTc: 389 Interpretive Statements SINUS RHYTHM INFERIOR MYOCARDIAL INFARCTION [40+ ms Q WAVE AND/OR ST/T ABNORMALITY IN II/aVF], PROBABLY OLD Electronically Signed On 09-04-2017 14:43:43 EDT by Lou Larsen
[2017-09-07 16:45] LABS: Prothrombin G20210A Specimen WHOLE BLOOD
[2017-09-07 18:56] LABS: FACV Specimen WHOLE BLOOD
[2017-09-08 07:17] LABS: Fac V Leiden R506Q Mut Result NEGATIVE; Prothrombin G20210A Mut Result NEGATIVE
== END 2017-09-04 11:39 | disposition home or self-care (01) | DRG 378 ==
LOC: EMEROO 11:45 → 3ANU 11:45
PROVIDERS: ADMIT General Practice; ATTEND General Practice